=== PATIENT | male | born 1960 | race Caucasian/White ===

== ENCOUNTER → 2024-02-08 10:50 | Outpatient (REF) | payer OTHER, SELFPAY ==
[2024-02-08 12:11] LABS: % Basophils 0.4 % (0-2); % Eosinophils 3.6 % (0-6); % Immature Granulocytes 0.2 % (0-0.5); % Lymphocytes 36.4 % (20.5-51.1); % Neutrophils 52.4 % (42.2-75.2); Absolute Eosinophils 0.2 10^3/uL (0-0.7); Absolute Lymphocytes 1.8 10^3/uL (1.2-3.4); Absolute Monocytes 0.4 10^3/uL (0.1-0.6); Absolute Neutrophils 2.6 10^3/uL (1.4-6.5); Hematocrit 44.1 % (39.0-52.0); Hemoglobin 14.9 g/dL (13.0-18.0); Mean Corp Hgb Conc. 33.8 g/dL (33.0-37.0); Mean Corpuscular Hgb 30.7 pg (27.0-31.0); Mean Corpuscular Volume 90.9 fL (80.0-94.0); Mean Platelet Volume 10.5 fL (7.4-10.4); Nucleated Red Blood Cells % 0 % (-); Platelet Count 203 10^3/uL (130-400); Red Blood Cell Count 4.85 10^6/uL (4.70-6.10); Red Cell Dist. Width 12.9 % (11.5-14.5)
[2024-02-08 12:35] LABS: Blood Urea Nitrogen 18 mg/dl (9-20); Calcium 10.1 mg/dl (8.4-10.2); Carbon Dioxide 28 mmol/L (22-30); Chloride 105 mmol/L (98-107); Glucose 115 mg/dl (70-99); Potassium 5.2 mmol/L (3.5-5.1); Sodium 139 mmol/L (135-145); eGFR > 60.00
== END ==
LOC: RCS 10:50
PROVIDERS: ATTENDING PHYSICIAN Orthopaedic Surgery; FAMILY PHYSICIAN Internal Medicine
DX: Z01.818 Encounter for other preprocedural examination (principal)
CPT/HCPCS: 36415; 80048; 85025; 93005